=== PATIENT | male | born 1990 | race Caucasian/White ===

== ENCOUNTER 2025-03-02 08:35 | Outpatient (CLI) | payer BC, MEDICAID, SELFPAY | END 2025-03-02 08:36 | disposition home or self-care (01) | LOC: NFLDREF 03-10 23:09 | PROVIDERS: PCP Family Medicine; Referring Provider Family Medicine; Visit Provider Family Medicine | DX: Z00.01 Encounter for general adult medical examination with abnormal findings (principal); E78.5 Hyperlipidemia, unspecified; Z13.1 Encounter for screening for diabetes mellitus | CPT/HCPCS: 80061; 82947 ==

== ENCOUNTER 2025-04-21 12:27 | Outpatient (CLI) | payer BC, MEDICAID, SELFPAY ==
--- NOTE | 2025-05-19 11:26 | W.PM.SLEEP ---
Sleep Study Details Details Interpreting Provider: Tonya Date of Sleep Study: 04/21/25 Sleep Study Details: STUDY TYPE:? home unattended ? BMI:? not recorded ORDERING PROVIDER:? Tonya INDICATION:? concerned about sleep apnea ? SLEEP SUMMARY:? 440 minutes monitored RESPIRATORY SUMMARY:? AHI 23.2 per rule 1A, 15.4 per CMS guideline Low oxygen 87 0.4% of study oxygen less than 90% Snoring 97.5% PERIODIC LIMB MOVEMENTS OF SLEEP:? not recorded CARDIAC:? range 46-104, mean 56.4 beats per minute IMPRESSION:? moderate obstructive sleep apnea RECOMMENDATION: treatment options include CPAP, dental appliance and/or airway expansion surgery.
== END 2025-04-21 12:28 | disposition home or self-care (01) ==
LOC: SLEEP 12:29
PROVIDERS: PCP Family Medicine; Visit Provider Otolaryngology
DX: G47.33 Obstructive sleep apnea (adult) (pediatric) (principal)
CPT/HCPCS: 95806